=== PATIENT | male | born 1970 | race Caucasian/White ===

== ENCOUNTER 2021-05-28 14:09 | Inpatient (IN) ==
[2021-05-28] MEDS ORDERED: SODIUM CHLORIDE 0.9% 500 ML IV STA (14:56)
--- NOTE | 2021-05-28 15:10 | Emergency Department Note ---
History of Present Illness General Chief complaint: Chest Pain Time Seen by Provider: 05/28/21 14:42 History of Present Illness 50-year-old male who presents to the emergency department with his for evaluation of chest pain. The patient describes it as a sharp sensation of the lower sternum region. It does not extend into the jaw, neck or extremities. The patient reports that he had just come plowing and shoveling snow. He was in his home when he developed the pain. The patient reported a brief episode of diaphoresis as well. The pain quickly went away within a few minutes. His [id number] was there, and was concerned that this could be his heart, and administered aspirin 325 mg. She also called 911, and the patient was transported to the emergency department for further evaluation. The patient refused IV access or nitroglycerin on route, denying any pain, and still currently denies any pain since arrival to the emergency department. The patient reports that he has had a prior history of stress echocardiogram performed by [email or web address] several years ago. The patient reports that he did have a weird heart rhythm, but was never put on any different medications other than his medications for hypertension and hyperlipidemia. The patient reports that he did not take his blood pressure medication this morning, and did take that after doing his outside activities. Blood pressure on route was 170/90. At the current time, the patient still denies any discomfort, nausea or diaphoresis. Home Medications Medication Instructions Recorded Confirmed Type atorvastatin 20 mg tablet 20 mg PO HS 05/28/21 05/28/21 History losartan 50 mg tablet 50 mg PO DAILY 05/28/21 05/28/21 History Allergies Allergy/AdvReac Type Severity Reaction Status Date / Time lisinopril AdvReac Unknown Cough Verified 05/28/21 15:26 Past Med/Surg History Medical History History of palpitations Hyperlipidemia Hypertension Surgical History No significant past surgical history Family History (Updated 05/28/21 @ 15:04 by Chirag Meade) Grandfather Myocardial infarction Social History Smoking Status: Never smoker Feels Safe at Home: Yes Review of Systems 10 system review was performed and was negative except for pertinent positives and negatives as indicated in history of present illness Physical Exam Vital Signs Vital Signs - 24 hr 05/28/21 14:30 05/28/21 14:31 05/28/21 15:00 Temperature 37.1 C Temperature Source Oral Pulse Rate 80 84 60 Pulse Rate from SpO2 Sensor 61 Respiratory Rate 22 16 20 Blood Pressure 180/92 H 191/98 H 203/98 H Blood Pressure Mean 121 129 133 Blood Pressure Position Sitting Pulse Oximetry 97 94 98 Oxygen Delivery Method Room Air Room Air Room Air Sepsis Recent Fever Within 48 Hours No Sepsis New/Unexplained Change in Mental Status No Sepsis Action Taken by Nursing No Action Required 05/28/21 15:29 05/28/21 15:30 05/28/21 16:00 Temperature Temperature Source Pulse Rate 56 L 60 75 Pulse Rate from SpO2 Sensor 57 L 59 L 69 Respiratory Rate 21 16 25 H Blood Pressure 175/100 H 171/106 H 161/84 H Blood Pressure Mean 125 127 109 Blood Pressure Position Pulse Oximetry 98 98 98 Oxygen Delivery Method Room Air Room Air Room Air Sepsis Recent Fever Within 48 Hours Sepsis New/Unexplained Change in Mental Status Sepsis Action Taken by Nursing 05/28/21 16:30 05/28/21 17:00 05/28/21 17:30 Temperature Temperature Source Pulse Rate 64 57 L 56 L Pulse Rate from SpO2 Sensor 59 L 57 L 55 L Respiratory Rate 26 H 22 23 Blood Pressure 176/82 H 168/78 H 170/95 H Blood Pressure Mean 113 108 120 Blood Pressure Position Pulse Oximetry 98 98 98 Oxygen Delivery Method Room Air Room Air Room Air Sepsis Recent Fever Within 48 Hours Sepsis New/Unexplained Change in Mental Status Sepsis Action Taken by Nursing 05/28/21 18:00 Temperature Temperature Source Pulse Rate 76 Pulse Rate from SpO2 Sensor 75 Respiratory Rate 21 Blood Pressure 200/106 H Blood Pressure Mean 137 Blood Pressure Position Pulse Oximetry 99 Oxygen Delivery Method Room Air Sepsis Recent Fever Within 48 Hours Sepsis New/Unexplained Change in Mental Status Sepsis Action Taken by Nursing CONSTITUTIONAL: Healthy and well nourished. Alert and oriented X 3. Patient does not appear in any acute distress, and is not diaphoretic. HEENT: Normocephalic, atraumatic. Pupils equal, round and reactive. NECK: Full active range of motion without discomfort. LYMPHATICS: No cervical chain adenopathy. RESPIRATORY: Clear to auscultation bilaterally with no wheezing, crackles, rhonchi or stridor. CARDIOVASCULAR: Regular rate and rhythm with no murmurs, rubs or gallops. GASTROINTESTINAL: Bowel sounds present in all quadrants. Soft and nontender to palpation. MUSCULOSKELETAL: Full range of motion of all joints without discomfort. Patient has no reproducible tenderness to palpation over the anterior chest wall or costochondral joints. INTEGUMENTARY: No rash or other significant dermatologic conditions noted. HEMATOLOGIC: No ecchymosis or petechiae. PSYCHIATRIC: Positive affect. NEUROLOGIC: No focal neurologic deficits noted. Course Course Patient history and physical exam were performed. Nurses notes were reviewed. Vital signs were reviewed, showing an elevated blood pressure 191/98. I also reviewed prior medical records, showing that I saw this patient back in April 2016 after experiencing left-sided chest pain while hunting. His work-up in the emergency department was normal. The patient reports that he did follow-up with [facility] cardiology at a later date after having palpitations. He did have an echocardiogram performed that was normal. IV access was established upon arrival to the emergency department, and labs were drawn. An ECG was performed and compared to his prior ECG in April 2016 without any significant changes. The patient did have a PVC on today's exam, however no obvious ST elevation or conduction abnormalities noted. The patient was also placed on insurance claim representative while in the emergency department. Portable chest x-ray was also performed and was normal. Review of labs showed a normal D -dimer, and troponin of 0.03. Patient is mildly hyponatremic at 135. LFTs are also elevated with no prior labs for comparison. A 2-hour troponin was performed, and slightly elevated at 0.04. A 2.5-hour ECG, however, showed ischemic changes in inferior and lateral leads. The patient was reevaluated, again denying any chest pain while in the emergency department. The case was then further discussed with Dr. Moran, ED attending physician, who recommends cardiology consultation. The case was further discussed with Dr. Bishop at the patient's request, who recommended admission with planned stress echo in the morning. The case was then further discussed with the [facility] hospitalist service, with Dr. Jade evaluated the patient for admission. I did discuss with Dr. Bishop administration of IV heparin, however he does not feel that the patient warrants heparinization since he does not have any current chest pain. Please see the hospitalist service and Dr. Bishop's dictation for further treatment and final disposition. Administered Medications Discontinued Medications Sodium Chloride (Nss) 500 mls @ 999 mls/hr IV .Q31M STA Stop: 05/28/21 15:26 Last Infusion: 05/28/21 16:10 Dose: 0 mls/hr Documented by: [id number] Admin: 05/28/21 15:30 Dose: 999 mls/hr Documented by: [id number] Labetalol HCl (Labetalol Hcl Iv 5 Mg/Ml 20ml) 5 mg IV NOW STA Stop: 05/28/21 18:56 Last Admin: 05/28/21 20:38 Dose: 5 mg Documented by: [id number] Cosigned by: [id number] Losartan Potassium (Losartan Potassium 50 Mg Tab) 50 mg PO NOW STA Stop: 05/28/21 19:20 Last Admin: 05/28/21 20:41 Dose: 50 mg Documented by: [id number] Medical Decision Making Medical Records Attestation: I reviewed the patient's medical records. Home Medications Current Medication List: was personally reviewed by me Laboratory Data Attestation: I reviewed the patient's lab results. Result diagrams: 05/28/21 14:43 05/28/21 14:43 Lab Results 05/28/21 05/28/21 05/28/21 Range/Units 14:43 14:43 14:43 WBC 6.37 (4.8-10.8) K/uL RBC 4.61 L (4.7-6.1) M/uL Hgb 15.7 (14.0-18.0) g/dL Hct 45.4 (42-52) % MCV 98.5 (80-100) fL MCH 34.1 H (25-34) pg MCHC 34.6 (32-36) g/dL RDW Std Deviation 46.6 H (36.4-46.3) fL RDW Coeff of Sai 12.9 (11.5-14.5) % Plt Count 245 (130-400) K/uL MPV 9.6 (7.4-10.4) fL Immature Gran % (Auto) 0.2 % Neut % (Auto) 76.3 % Lymph % (Auto) 14.9 % [place] % (Auto) 7.4 % Eos % (Auto) 0.9 % Baso % (Auto) 0.3 % Neut # (Auto) 4.86 (1.4-6.5) K/uL Lymph # (Auto) 0.95 L (1.2-3.4) K/uL [place] # (Auto) 0.47 (0.11-0.59) K/uL Eos # (Auto) 0.06 (0-0.5) K/uL Baso # (Auto) 0.02 (0-0.2) K/uL Immature Gran # (Auto) 0.01 (0.00-0.02) K/uL PT 10.1 (9.0-12.0) Seconds INR 1.0 (0.9-1.1) APTT 24.4 (21.0-31.0) Seconds PTT Ratio 0.9 D-Dimer 360 (0-500) ug/L FEU Sodium 135 L (136-145) mmol/L Potassium 3.8 (3.5-5.1) mmol/L Chloride 103 (98-107) mmol/L Carbon Dioxide 24 (21-32) mmol/L Anion Gap 8 (3-11) BUN 13 (6-23) mg/dl Creatinine 0.88 (0.6-1.4) mg/dl Est Cr Clr Drug Dosing 124.8 ml/min Est GFR ( Amer) 116.9 ml/min Est GFR (Non-Af Amer) 100.9 ml/min BUN/Creatinine Ratio 14.8 (10-20) Glucose 82 (70-99(Fasting)) mg/dl Calcium 9.3 (8.5-10.1) mg/dl Magnesium (1.7-2.4) mg/dl Total Bilirubin 0.6 (0.2-1.0) mg/dl AST 85 H (13-39) U/L ALT 89 H (7-52) U/L Alkaline Phosphatase 59 (34-104) U/L Troponin I 0.03 (0-0.04) ng/ml Total Protein 7.3 (6.0-8.3) gm/dl Albumin 4.5 (3.4-5.0) gm/dl Globulin 2.8 (2.5-4.0) gm/dl Albumin/Globulin Ratio 1.6 (0.9-2) Lipase 63 (11-82) U/L Ethyl Alcohol mg/dL (<10.0) mg/dl SARS-CoV-2, RNA, NAAT (NEGATIVE) 05/28/21 05/28/21 05/28/21 Range/Units 16:37 18:38 19:37 WBC (4.8-10.8) K/uL RBC (4.7-6.1) M/uL Hgb (14.0-18.0) g/dL Hct (42-52) % MCV (80-100) fL MCH (25-34) pg MCHC (32-36) g/dL RDW Std Deviation (36.4-46.3) fL RDW Coeff of Sai (11.5-14.5) % Plt Count (130-400) K/uL MPV (7.4-10.4) fL Immature Gran % (Auto) % Neut % (Auto) % Lymph % (Auto) % [place] % (Auto) % Eos % (Auto) % Baso % (Auto) % Neut # (Auto) (1.4-6.5) K/uL Lymph # (Auto) (1.2-3.4) K/uL [place] # (Auto) (0.11-0.59) K/uL Eos # (Auto) (0-0.5) K/uL Baso # (Auto) (0-0.2) K/uL Immature Gran # (Auto) (0.00-0.02) K/uL PT (9.0-12.0) Seconds INR (0.9-1.1) APTT (21.0-31.0) Seconds PTT Ratio D-Dimer (0-500) ug/L FEU Sodium (136-145) mmol/L Potassium (3.5-5.1) mmol/L Chloride (98-107) mmol/L Carbon Dioxide (21-32) mmol/L Anion Gap (3-11) BUN (6-23) mg/dl Creatinine (0.6-1.4) mg/dl Est Cr Clr Drug Dosing ml/min Est GFR ( Amer) ml/min Est GFR (Non-Af Amer) ml/min BUN/Creatinine Ratio (10-20) Glucose (70-99(Fasting)) mg/dl Calcium (8.5-10.1) mg/dl Magnesium 1.8 (1.7-2.4) mg/dl Total Bilirubin (0.2-1.0) mg/dl AST (13-39) U/L ALT (7-52) U/L Alkaline Phosphatase (34-104) U/L Troponin I 0.04 0.04 (0-0.04) ng/ml Total Protein (6.0-8.3) gm/dl Albumin (3.4-5.0) gm/dl Globulin (2.5-4.0) gm/dl Albumin/Globulin Ratio (0.9-2) Lipase (11-82) U/L Ethyl Alcohol mg/dL (<10.0) mg/dl SARS-CoV-2, RNA, NAAT NEGATIVE (NEGATIVE) 05/28/21 Range/Units 19:37 WBC (4.8-10.8) K/uL RBC (4.7-6.1) M/uL Hgb (14.0-18.0) g/dL Hct (42-52) % MCV (80-100) fL MCH (25-34) pg MCHC (32-36) g/dL RDW Std Deviation (36.4-46.3) fL RDW Coeff of Sai (11.5-14.5) % Plt Count (130-400) K/uL MPV (7.4-10.4) fL Immature Gran % (Auto) % Neut % (Auto) % Lymph % (Auto) % [place] % (Auto) % Eos % (Auto) % Baso % (Auto) % Neut # (Auto) (1.4-6.5) K/uL Lymph # (Auto) (1.2-3.4) K/uL [place] # (Auto) (0.11-0.59) K/uL Eos # (Auto) (0-0.5) K/uL Baso # (Auto) (0-0.2) K/uL Immature Gran # (Auto) (0.00-0.02) K/uL PT (9.0-12.0) Seconds INR (0.9-1.1) APTT (21.0-31.0) Seconds PTT Ratio D-Dimer (0-500) ug/L FEU Sodium (136-145) mmol/L Potassium (3.5-5.1) mmol/L Chloride (98-107) mmol/L Carbon Dioxide (21-32) mmol/L Anion Gap (3-11) BUN (6-23) mg/dl Creatinine (0.6-1.4) mg/dl Est Cr Clr Drug Dosing ml/min Est GFR ( Amer) ml/min Est GFR (Non-Af Amer) ml/min BUN/Creatinine Ratio (10-20) Glucose (70-99(Fasting)) mg/dl Calcium (8.5-10.1) mg/dl Magnesium (1.7-2.4) mg/dl Total Bilirubin (0.2-1.0) mg/dl AST (13-39) U/L ALT (7-52) U/L Alkaline Phosphatase (34-104) U/L Troponin I (0-0.04) ng/ml Total Protein (6.0-8.3) gm/dl Albumin (3.4-5.0) gm/dl Globulin (2.5-4.0) gm/dl Albumin/Globulin Ratio (0.9-2) Lipase (11-82) U/L Ethyl Alcohol mg/dL < 10.0 (<10.0) mg/dl SARS-CoV-2, RNA, NAAT (NEGATIVE) Imaging Data Attestation: I personally reviewed and interpreted this imaging study as follows: My Impression: My interpretation of a portable chest x-ray does not show any consolidations, pneumothorax or cardiac prominence. Radiologist report was also reviewed. Radiologist's Impression: Chest X-Ray 05/28/21 14:56 XR chest 1V portable CLINICAL HISTORY: Chest Pain. COMPARISON STUDY: 04/16/2016 TECHNIQUE: 1 view of the chest FINDINGS: Single frontal view of the chest demonstrates the cardiomediastinal silhouette to be within normal limits. The lungs are clear of alveolar opacities. There is no evidence for pleural effusion. There is no evidence for vascular congestion. There is no acute osseous pathology. IMPRESSION: No acute cardiopulmonary disease. ACT 112: Negative or not required by law. Electronically signed by: Jozef Carr M.D. 05/28/2021 3:21 PM ECG Data Attestation: I personally reviewed and interpreted this ECG as follows: Indication: + chest pain and + diaphoresis Rate (beats per minute): 66 Rhythm: + sinus with SA ECG Intervals/blocks: + Normal QRS and + Normal QT ECG [place]: + Normal ECG ST segments: + Normal ST segments ECG Findings: + PVCs Comparison ECG Date: from (04/16/2016) Change: no significant change Additional Comments: Repeat ECG at 2.5 hours shows ischemic changes in inferior leads, and lateral leads V5 and V6. Blood Pressure Blood Pressure Findings: Normal blood pressure MDM Narrative Cardiac monitoring: An order was placed for continuous cardiac monitoring. The monitor shows a rate of 66 bpm with sinus arrhythmia. travel accommodations rater history was reviewed throughout the evaluation, and no dysrhythmias were noted. Patient presents to the emergency department with complaint of chest pain and diaphoresis after working in snow this morning. With rest, the symptoms did resolve. Patient was administered aspirin at home, and transported to the emergency department for further evaluation, refusing any nitroglycerin or IV access on route. Today's work-up here is concerning for inferior and lateral ischemic changes, with a mild increase in his troponin level. At this point, cardiology feels that the patient does not require heparinization, and will undergo a stress echo in the morning. Further ECG and troponin trending will be performed overnight. Impression & Plan Unstable angina Discharge Plan Visit Data Chief Complaint: Chest Pain ED Provider: Araseli Moran ED Midlevel Provider: Chirag Meade Discharge Problem: Unstable angina Forms Stand Alone Forms: My [employer] Prescriptions Prescriptions: No Action losartan 50 mg tablet 50 mg PO DAILY RF: 0 atorvastatin 20 mg tablet 20 mg PO HS RF: 0 Referrals Referrals: Christopher Mejia MD [Primary Care Provider] -
--- NOTE | 2021-05-28 15:22 | XRay Report ---
XR chest 1V portable CLINICAL HISTORY: Chest Pain. COMPARISON STUDY: 04/16/2016 TECHNIQUE: 1 view of the chest FINDINGS: Single frontal view of the chest demonstrates the cardiomediastinal silhouette to be within normal li mits. The lungs are clear of alveolar opacities. There is no evidence for pleural effusion. There is no evidence for vascular congestion. There is no acute osseous pathology. IMPRESSION: No acute cardiopulmonary disease. ACT 112: Negative or not required by law. Electronically signed by: Jozef Carr M.D. 05/28/2021 3:21 PM
[2021-05-28 15:28] LABS: Basophils # (auto) 0.02 K/uL (0-0.2); Basophils % (auto) 0.3 %; Eosinophils # (auto) 0.06 K/uL (0-0.5); Eosinophils % (auto) 0.9 %; Hematocrit (blood only) 45.4 % (42-52); Hemoglobin 15.7 g/dL (14.0-18.0); Immature Granulocytes # (auto) 0.01 K/uL (0.00-0.02); Immature Granulocytes % (auto) 0.2 %; Lymphocytes # (auto) 0.95 K/uL (1.2-3.4); Lymphocytes % (auto) 14.9 %; Mean Corpuscular Hemoglobin 34.1 pg (25-34); Mean Corpuscular Hgb Conc 34.6 g/dL (32-36); Mean Corpuscular Volume 98.5 fL (80-100); Mean Platelet Volume 9.6 fL (7.4-10.4); Monocytes # (auto) 0.47 K/uL (0.11-0.59); Monocytes % (auto) 7.4 %; Neutrophils # (auto) 4.86 K/uL (1.4-6.5); Neutrophils % (auto) 76.3 %; Platelet Count 245 K/uL (130-400); RDW Coefficient of Variation 12.9 % (11.5-14.5); RDW Standard Deviation 46.6 fL (36.4-46.3); Red Blood Count 4.61 M/uL (4.7-6.1); White Blood Count 6.37 K/uL (4.8-10.8)
[2021-05-28 15:39] LABS: D Dimer 360 ug/L FEU (0-500); Partial Thromboplastin Ratio 0.9; Partial Thromboplastin Time 24.4 Seconds (21.0-31.0); Prothrombin Time 10.1 Seconds (9.0-12.0)
[2021-05-28 15:51] LABS: Troponin I 0.03 ng/ml (0-0.04)
[2021-05-28 15:55] LABS: Albumin Globulin Ratio 1.6 (0.9-2); Albumin Level 4.5 gm/dl (3.4-5.0); BUN Creatinine Ratio 14.8 (10-20); Bilirubin,Total 0.6 mg/dl (0.2-1.0); Calcium 9.3 mg/dl (8.5-10.1); Creatinine Clr Calc Pharmacy 124.8 ml/min; Est GFR (African American) 116.9 ml/min; Est GFR (Non-African American) 100.9 ml/min; Globulin 2.8 gm/dl (2.5-4.0); Total Protein 7.3 gm/dl (6.0-8.3)
[2021-05-28 16:24] LABS: Potassium 3.8 mmol/L (3.5-5.1)
--- NOTE | 2021-05-28 16:49 | Electrocardiogram Report ---
Test Reason : Blood Pressure : / mmHG Vent. Rate : 066 BPM Atrial Rate : 066 BPM P-R Int : 182 ms QRS Dur : 108 ms QT Int : 404 ms P-R-T Axes : 044 -20 -32 degrees QTc Int : 423 ms Sinus rhythm with marked sinus arrhythmia with Fusion complexes Abnormal ECG When compared with ECG of 16-APR-2016 11:02, Fusion complexes are now Present Confirmed by Robin Sharif ([id number]) on 05/28/2021 4:49:03 PM Referred By: REFERRED SELF Confirmed By:Robin Sharif
[2021-05-28] MEDS ORDERED: LABETALOL HCL IV 5 MG/ML 20ML IV STA (18:55)
[2021-05-28] MEDS ORDERED: LOSARTAN POTASSIUM 50 MG TAB PO STA (19:19)
[2021-05-28 20:10] LABS: Magnesium 1.8 mg/dl (1.7-2.4); Troponin I 0.04 ng/ml (0-0.04)
--- NOTE | 2021-05-28 21:10 | History & Physical Report ---
Date of Service May 28, 2021 Assessment & Plan (1) Chest pain: Plan: Chest pain with minimal troponin elevation secondary to uncontrolled hypertension Rule out ACS given patient risk factors Rule out sleep disordered breathing as contributory to uncontrolled hypertension Hyperlipidemia on statin Rx Abnormal LFTs, possibly from alcohol abuse OBS PCU Titrate home losartan Add amlodipine if still uncontrolled Follow troponin TTE, Cardiology consult Re: Chest pain with troponin elevation (Patient requesting for Dr. Bishop.) N.p.o. until patient seen by Cardiology in a.m. in anticipation of any procedure. Aspirin for CAD prevention until ACS ruled out Outpatient sleep study Follow LFTs, liver ultrasound if with progression [place] S, DT precautions Update lipid profile, continue statin DVT prophylaxis per Lovenox subcu Full code Text document was generated using [employer] voice recognition software. It may contain grammatical or spelling errors. Kindly contact undersigned for clarification of any documentation item in question. History of Present Illness Chief Complaint: Chest pain Primary Care Provider: Christopher Mejia MD History obtained from patient and records. Medical history significant for hypertension, hyperlipidemia, alcohol abuse. Patient experience sharp left-sided chest pain with diaphoreses after shoveling snow at home today. No radiation. Some shortness of breath. No headache symptoms. No cough symptoms. No prior episodes. Patient given aspirin at home by family. Chest pain relieved by aspirin. No prior episodes. Patient does not check blood pressure at home. Compliant with home medications. Patient admits to drinking more alcohol than he should. No prior history of alcohol withdrawal. Admits to snoring symptoms. No prior sleep studies. 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 Allergies Allergy/AdvReac Type Severity Reaction Status Date / Time lisinopril AdvReac Unknown Cough Verified 05/28/21 15:26 Home Medications Medication Instructions Recorded Confirmed Type atorvastatin 20 mg tablet 20 mg PO HS 05/28/21 05/28/21 History losartan 50 mg tablet 50 mg PO DAILY 05/28/21 05/28/21 History Past Med/Surg History Medical History (Updated 05/29/21 @ 12:52 by Chapin Powell MD) Alcohol abuse Fatty liver History of palpitations Hyperlipidemia Hypertension Surgical History No significant past surgical history Family History (Updated 05/28/21 @ 15:04 by Chirag Meade) Grandfather Myocardial infarction Social History Smoking Status: Former smoker Do You Dip or Chew Tobacco: Yes; Hx Alcohol Use: Yes Alcohol type: beer and hard liquor Preferred Language: Tamaz[place] Communication Ability: Effective Volunteer Services Supervisor Required: No Beliefs That Will Affect Care: None Current Living Situation: Alone Other Information That Helps Us Care for You: No Feels Safe at Home: Yes Safety Concerns: Feels Safe At This Time Assistive Devices: None Assistive Devices Comment: Reading Glasses Review of Systems Review of Systems: As per HPI, all 10 systems reviewed, all other ROS negative Physical Exam Physical Exam: GENERAL: Comfortable, pleasant, slightly anxious, no respiratory distress SKIN: Normal color, warm HEENT: [place] palpebral conjunctivae, no ptosis, dry buccal mucosa NECK : Supple, no tenderness CHEST : CTA, no tenderness HEART : RRR, no obvious murmurs ABDOMEN: Some distention, nontender EXTREMITIES : No LE swelling/tenderness, no other conspicuous deformities noted NEUROLOGIC : Coherent, no facial asymmetry, no other gross focality Results & Data Results & Data ([facility]) Vital Signs (Past 12 Hours) Vital Signs Temp Pulse Resp BP Pulse Ox 05/28/21 18:00 76 21 200/106 H 99 05/28/21 17:30 56 L 23 170/95 H 98 05/28/21 17:00 57 L 22 168/78 H 98 05/28/21 16:30 64 26 H 176/82 H 98 05/28/21 16:00 75 25 H 161/84 H 98 05/28/21 15:30 60 16 171/106 H 98 05/28/21 15:29 56 L 21 175/100 H 98 05/28/21 15:00 60 20 203/98 H 98 05/28/21 14:31 37.1 C 84 16 191/98 H 94 05/28/21 14:30 80 22 180/92 H 97 Laboratory Results Laboratory Results WBC 6.37 K/uL (4.8-10.8) 05/28/21 14:43 RBC 4.61 M/uL (4.7-6.1) L 05/28/21 14:43 Hgb 15.7 g/dL (14.0-18.0) 05/28/21 14:43 Hct 45.4 % (42-52) 05/28/21 14:43 MCV 98.5 fL (80-100) 05/28/21 14:43 MCH 34.1 pg (25-34) H 05/28/21 14:43 MCHC 34.6 g/dL (32-36) 05/28/21 14:43 RDW Std Deviation 46.6 fL (36.4-46.3) H 05/28/21 14:43 RDW Coeff of Sai 12.9 % (11.5-14.5) 05/28/21 14:43 Plt Count 245 K/uL (130-400) 05/28/21 14:43 MPV 9.6 fL (7.4-10.4) 05/28/21 14:43 Immature Gran % (Auto) 0.2 % 05/28/21 14:43 Neut % (Auto) 76.3 % 05/28/21 14:43 Lymph % (Auto) 14.9 % 05/28/21 14:43 [place] % (Auto) 7.4 % 05/28/21 14:43 Eos % (Auto) 0.9 % 05/28/21 14:43 Baso % (Auto) 0.3 % 05/28/21 14:43 Neut # (Auto) 4.86 K/uL (1.4-6.5) 05/28/21 14:43 Lymph # (Auto) 0.95 K/uL (1.2-3.4) L 05/28/21 14:43 [place] # (Auto) 0.47 K/uL (0.11-0.59) 05/28/21 14:43 Eos # (Auto) 0.06 K/uL (0-0.5) 05/28/21 14:43 Baso # (Auto) 0.02 K/uL (0-0.2) 05/28/21 14:43 Immature Gran # (Auto) 0.01 K/uL (0.00-0.02) 05/28/21 14:43 PT 10.1 Seconds (9.0-12.0) 05/28/21 14:43 INR 1.0 (0.9-1.1) 05/28/21 14:43 APTT 24.4 Seconds (21.0-31.0) 05/28/21 14:43 PTT Ratio 0.9 05/28/21 14:43 D-Dimer 360 ug/L FEU (0-500) 05/28/21 14:43 Sodium 135 mmol/L (136-145) L 05/28/21 14:43 Potassium 3.8 mmol/L (3.5-5.1) 05/28/21 14:43 Chloride 103 mmol/L (98-107) 05/28/21 14:43 Carbon Dioxide 24 mmol/L (21-32) 05/28/21 14:43 Anion Gap 8 (3-11) 05/28/21 14:43 BUN 13 mg/dl (6-23) 05/28/21 14:43 Creatinine 0.88 mg/dl (0.6-1.4) 05/28/21 14:43 Est Cr Clr Drug Dosing 124.8 ml/min 05/28/21 14:43 Est GFR ( Amer) 116.9 ml/min 05/28/21 14:43 Est GFR (Non-Af Amer) 100.9 ml/min 05/28/21 14:43 BUN/Creatinine Ratio 14.8 (10-20) 05/28/21 14:43 Glucose 82 mg/dl (70-99(Fasting)) 05/28/21 14:43 Calcium 9.3 mg/dl (8.5-10.1) 05/28/21 14:43 Magnesium 1.8 mg/dl (1.7-2.4) 05/28/21 19:37 Total Bilirubin 0.6 mg/dl (0.2-1.0) 05/28/21 14:43 AST 85 U/L (13-39) H 05/28/21 14:43 ALT 89 U/L (7-52) H 05/28/21 14:43 Alkaline Phosphatase 59 U/L (34-104) 05/28/21 14:43 Troponin I 0.04 ng/ml (0-0.04) 05/28/21 19:37 Total Protein 7.3 gm/dl (6.0-8.3) 05/28/21 14:43 Albumin 4.5 gm/dl (3.4-5.0) 05/28/21 14:43 Globulin 2.8 gm/dl (2.5-4.0) 05/28/21 14:43 Albumin/Globulin Ratio 1.6 (0.9-2) 05/28/21 14:43 Lipase 63 U/L (11-82) 05/28/21 14:43 Ethyl Alcohol mg/dL < 10.0 mg/dl (<10.0) 05/28/21 19:37 SARS-CoV-2, RNA, NAAT NEGATIVE (NEGATIVE) 05/28/21 18:38 Impressions Chest X-Ray 05/28/21 14:56 XR chest 1V portable CLINICAL HISTORY: Chest Pain. COMPARISON STUDY: 04/16/2016 TECHNIQUE: 1 view of the chest FINDINGS: Single frontal view of the chest demonstrates the cardiomediastinal silhouette to be within normal limits. The lungs are clear of alveolar opacities. There is no evidence for pleural effusion. There is no evidence for vascular congestion. There is no acute osseous pathology. IMPRESSION: No acute cardiopulmonary disease. ACT 112: Negative or not required by law. Electronically signed by: Jozef Carr M.D. 05/28/2021 3:21 PM Diagnostic Findings EKG as per my interpretation: Rate 65, NSR, LAD, LAFB, T wave abnormalities inferior leads
[2021-05-28] MEDS ORDERED: THIAMINE HCL 100 MG in SYRINGE 9 ML IV STA (21:18)
[2021-05-28] MEDS ORDERED: GABAPENTIN 1200MG ALCOHOL WITHDRAWAL LOAD PO STA (21:18)
[2021-05-28] MEDS ORDERED: GABAPENTIN 600 MG TAB PO STA (23:00)
[2021-05-28] MEDS ORDERED: LORazepam 1 MG/2 ML VIAL IV PRN (23:37)
[2021-05-28] MEDS ORDERED: LORazepam 3 MG/6 ML VIAL IV PRN (23:37)
[2021-05-28] MEDS ORDERED: ATIVAN IV ALCOHOL WITHDRAWL IV PRN (23:37)
[2021-05-28] MEDS ORDERED: oxyCODONE HCL IR 5 MG TAB (IMMEDIATE RELEASE) PO PRN (23:37)
[2021-05-28] MEDS ORDERED: LORazepam 2 MG/4 ML VIAL IV PRN (23:37)
[2021-05-28] MEDS ORDERED: NITROGLYCERIN SL 0.4 MG/TAB TAB SL PRN (23:37)
[2021-05-28] MEDS ORDERED: PROMETHAZINE HCL 12.5 MG in SODIUM CHLORIDE 0.9% 50 ML IV PRN (23:37)
[2021-05-29] MEDS ORDERED: SODIUM CHLORIDE 0.9% 1000ML 1,000 ML IV SCH
[2021-05-29] MEDS ORDERED: amLODIPine BESYLATE 5 MG TAB PO ONE ×2 (00:30→13:00)
[2021-05-29 05:57] LABS: Basophils # (auto) 0.02 K/uL (0-0.2); Basophils % (auto) 0.4 %; Eosinophils # (auto) 0.15 K/uL (0-0.5); Eosinophils % (auto) 2.8 %; Hematocrit (blood only) 42.8 % (42-52); Hemoglobin 14.9 g/dL (14.0-18.0); Lymphocytes # (auto) 1.76 K/uL (1.2-3.4); Mean Corpuscular Hemoglobin 33.8 pg (25-34); Mean Corpuscular Hgb Conc 34.8 g/dL (32-36); Mean Corpuscular Volume 97.1 fL (80-100); Mean Platelet Volume 9.3 fL (7.4-10.4); Monocytes # (auto) 0.63 K/uL (0.11-0.59); Monocytes % (auto) 11.8 %; Neutrophils # (auto) 2.78 K/uL (1.4-6.5); Platelet Count 214 K/uL (130-400); RDW Coefficient of Variation 12.7 % (11.5-14.5); RDW Standard Deviation 45.4 fL (36.4-46.3); Red Blood Count 4.41 M/uL (4.7-6.1); White Blood Count 5.34 K/uL (4.8-10.8)
[2021-05-29] MEDS: GABAPENTIN 600MG Q6H DOSE PO SCH ×2 (06:06→12:41)
[2021-05-29 06:19] LABS: Partial Thromboplastin Time 25.1 Seconds (21.0-31.0)
[2021-05-29 06:21] LABS: Troponin I 0.04 ng/ml (0-0.04)
[2021-05-29 06:32] LABS: Albumin Globulin Ratio 1.7 (0.9-2); BUN Creatinine Ratio 13.8 (10-20); Bilirubin,Total 0.8 mg/dl (0.2-1.0); Calcium 8.6 mg/dl (8.5-10.1); Chol HDL Ratio 3.5; Creatinine Clr Calc Pharmacy 136.4 ml/min; Est GFR (African American) 121.6 ml/min; Est GFR (Non-African American) 104.9 ml/min; Globulin 2.3 gm/dl (2.5-4.0); Potassium 3.4 mmol/L (3.5-5.1); Total Protein 6.3 gm/dl (6.0-8.3)
[2021-05-29] MEDS ORDERED: POTASSIUM CHLORIDE CRTAB 20 MEQ TABCR PO STA (08:02)
[2021-05-29] MEDS: LOSARTAN POTASSIUM 50 MG TAB PO SCH (08:03)
[2021-05-29] MEDS: MULTIVITAMIN TAB PO SCH (08:05)
[2021-05-29] MEDS: THIAMINE HCL 100 MG TAB PO SCH (08:05)
[2021-05-29] MEDS: ASPIRIN 81 MG ECTAB PO SCH (08:06)
[2021-05-29] MEDS: FOLIC ACID 1 MG TAB PO SCH (08:06)
[2021-05-29] MEDS ORDERED: hydrALAZINE HCL 20 MG/ML VIAL IV ONE (08:14)
[2021-05-29] MEDS ORDERED: hydrALAZINE HCL 20 MG/ML VIAL ONE (08:15)
--- NOTE | 2021-05-29 08:26 | Hospitalist Progress Note ---
Date of Service May 29, 2021 Assessment & Plan (1) Chest pain: Plan: Likely related to elevated blood pressure, however, risk factors present for CAD. Cardiology consult requested. Denies pain currently. Trop trend is negative x 3 overnight. EKG with some TWI in V5/6 this am different from yesterday. Patient mentions issues with anxiety related to doctor's offices and hospitals in the past. Will attempt to get BP better under control at this time. Likely stress test today if BP can be more controlled. Defer this to cardiology. (2) Hypertensive urgency: Plan: Uncontrolled overnight. Possibly related to alcohol withdrawal, however, patient is not symptomatic at this time. Add hydralazine 5mg IV now. Losartan 100mg given this am per home meds. Recheck in one hour. (3) Hyperlipidemia: Plan: Elevated LDL. Would increase lipitor 20mg to 40mg daily on discharge. (4) Elevated transaminase level: Plan: Possibly related to statin use and prior notes mention alcohol use. RUQ ultrasound ordered. Trending down. (5) DVT prophylaxis: Plan: Lovenox Full Code Dispo-to home pending cardiology recommendations, improvement in blood pressure. Cadence Cox DO [facility] Hospitalist Admission and Anticipated Discharge Date Admission Date: May 28, 2021 Subjective 50 yo M with hyperlipidemia and HTN presents with acute chest pain after shoveling snow yesterday. He is active and denies chest pain or progressive SOB with exertion in the last 6 months. Reports the pain was in his left anterior chest and was associated with diaphoresis. Reports that his blood pressure is typically within range and that he is compliant with his medications. Chest pain was coming and going, nothing seemed to make it better. He remembers it still being there in the ambulance but hasn't had any overnight. BP has remained elevated overnight. Review of Systems Review of Systems: All systems were reviewed and negative except as indicated above. Physical Exam Physical Exam: CONSTITUTIONAL: WNWD, vitals as above, generally well- appearing, NAD EYES: normal conjunctivae, no scleral icterus, ENT: external ear and nose normal, MMM NECK: trachea midline, RESPIRATORY: clear to auscultation bilaterally, no crackles, rales or wheezes, normal respiratory effort CARDIOVASCULAR: regular rate and rhythm, S1 and 2 heard without murmurs, gallops or rubs, no JVD, no peripheral edema, CHEST: inspection of chest was normal GASTROINTESTINAL: soft, ND MUSCULOSKELETAL: strength 5/5 throughout, head is normocephalic and atraumatic SKIN: warm and dry NEUROLOGIC: CN 2-12 grossly intact, no sensory deficit, normal cognition, normal speech, no tremor. No gross focal deficits. PSYCHIATRIC: alert cooperative and oriented to person, place and time. Results & Data Results & Data ([facility]) Vital Signs (Past 12 Hours) Vital Signs Temp Pulse Pulse Resp BP BP Pulse Ox 05/29/21 07:21 36.6 C 54 L 18 184/94 H 97 05/29/21 03:49 36.6 C 66 16 176/95 H 95 05/29/21 01:02 64 201/101 H 05/28/21 23:51 36.7 C 67 20 199/98 H 98 05/28/21 23:17 103 H 18 194/102 H 98 Laboratory Results Short CBC 05/28/21 05/29/21 Range/Units 14:43 05:39 WBC 6.37 5.34 (4.8-10.8) K/uL Hgb 15.7 14.9 (14.0-18.0) g/dL Hct 45.4 42.8 (42-52) % Plt Count 245 214 (130-400) K/uL BMP 05/28/21 05/29/21 14:43 05:39 Sodium 135 L 138 Potassium 3.8 3.4 L Chloride 103 106 Carbon Dioxide 24 24 BUN 13 11 Creatinine 0.88 0.80 Glucose 82 84 Calcium 9.3 8.6 Cardiac Enzymes 05/28/21 05/28/21 05/28/21 Range/Units 14:43 16:37 19:37 Troponin I 0.03 0.04 0.04 (0-0.04) ng/ml 05/29/21 Range/Units 05:39 Troponin I 0.04 (0-0.04) ng/ml Liver Function 05/28/21 05/29/21 Range/Units 14:43 05:39 Total Bilirubin 0.6 0.8 (0.2-1.0) mg/dl AST 85 H 46 H (13-39) U/L ALT 89 H 67 H (7-52) U/L Alkaline Phosphatase 59 49 (34-104) U/L Albumin 4.5 4.0 (3.4-5.0) gm/dl Medications Administered Current Inpatient Medications Amlodipine Besylate (Amlodipine Besylate 5 Mg Tab) 2.5 mg PO [facility] Stop: 06/28/21 20:59 Aspirin (Aspirin 81 Mg Ectab) [facility]: 06/28/21 08:59 Last Admin: 05/29/21 08:06 Dose: 81 mg Documented by: Atorvastatin Calcium (Atorvastatin 20 Mg Tab) 20 mg PO [facility] Stop: 06/28/21 20:59 Enoxaparin Sodium (Enoxaparin Inj 40 Mg/0.4 Ml Syr) 40 mg SQ [facility] Stop: 06/28/21 08:59 Folic Acid (Folic Acid 1 Mg Tab) 1 mg PO [facility] Stop: 06/28/21 08:59 Last Admin: 05/29/21 08:06 Dose: 1 mg Documented by: Gabapentin (Gabapentin 600mg Q6h Dose) 600 mg PO Q6H [facility] Stop: 05/29/21 12:01 Last Admin: 05/29/21 06:06 Dose: 600 mg Documented by: Gabapentin (Gabapentin 600mg Q8h Dose) 600 mg PO Q8H [facility] Stop: 05/30/21 14:01 Gabapentin (Gabapentin 600mg Q12h Dose) 600 mg PO Q12H [facility] Stop: 05/31/21 12:01 Gabapentin (Gabapentin 600mg X1 Dose) 600 mg PO Q24H [facility] Stop: 06/01/21 12:01 Lorazepam (Ativan) 1 mg in 2 mls @ 2 mls/min IV UD PRN; Protocol PRN Reason: EtOH Withdrawl AWSS Score 6,7 Stop: 06/27/21 23:36 Lorazepam (Ativan) 2 mg in 4 mls @ 4 mls/min IV UD PRN; Protocol PRN Reason: EtOH Withdrawl AWSS Score 8,9 Stop: 06/27/21 23:36 Lorazepam (Ativan) 3 mg in 6 mls @ 4 mls/min IV ONCE PRN; Protocol PRN Reason: EtOH Withdrawl AWSS Score >=10 Stop: 06/27/21 23:36 Promethazine HCl 12.5 mg/ (Sodium Chloride) 50.5 mls @ 202 mls/hr IV Q6H PRN PRN Reason: Nausea And Vomiting Stop: 06/27/21 23:36 Losartan Potassium (Losartan Potassium 50 Mg Tab) 100 mg PO DAILY [facility] Stop: 06/28/21 08:59 Last Admin: 05/29/21 08:03 Dose: 100 mg Documented by: Multivitamins (Multivitamin Tab) [facility] [place]: 06/28/21 08:59 Last Admin: 05/29/21 08:05 Dose: 1 tab Documented by: Nitroglycerin (Nitroglycerin Sl 0.4 Mg/Tab Tab) 0.4 mg SL PRN PRN PRN Reason: cp Stop: 06/27/21 23:36 Oxycodone HCl (Oxycodone Hcl Ir 5 Mg Tab (Immediate Release)) 5 mg PO Q4H PRN PRN Reason: Pain Stop: 06/11/21 23:36 Thiamine HCl (Thiamine Hcl 100 Mg Tab) [facility]: 06/28/21 08:59 Last Admin: 05/29/21 08:05 Dose: 100 mg Documented by:
--- NOTE | 2021-05-29 09:26 | XCELERA ---
[id number]
--- NOTE | 2021-05-29 10:17 | Ultrasound Report ---
US liver LIMITED ABDOMEN CLINICAL HISTORY: elevated LFT. COMPARISON: None. TECHNIQUE: Multiple grayscale and color images of the right upper quadrant of the abdomen. FINDINGS: The study is limited by overlying bowel gas. Pancreas: The pancreas is not well visualized due to the overlying bowel gas. Liver: The liver demonstrates diffuse increased heterogeneous echogenicity characteristic of diffuse fatty infiltration. There is no evidence for a focal mass. There is no intrahepatic biliary duct dila tation. There is mild hepatomegaly with the liver measuring 19 cm in the axillary margin. Gallbladder: The gallbladder is well distended with no evidence of cholelithiasis, wall thickening o r pericholecystic edema. Common Bile Duct: (CBD): It is normal in size measuring 6 mm. Inferior Vena Cava (IVC): The imaged IVC is patent. Right kidney: There is no evidence for hydronephrosis, calculus or gross renal mass. The kidney is n ormal in size. IMPRESSION: Mild hepatomegaly with diffuse fatty infiltration of the liver. ACT 112: Negative or not required by law. Electronically signed by: Jozef Carr M.D. 05/29/2021 10:15 AM
[2021-05-29] MEDS ORDERED: LORazepam 1 MG/2 ML VIAL IV STA (12:16)
--- NOTE | 2021-05-29 12:37 | Cardiology Consultation ---
Date of Consultation May 29, 2021 Assessment & Plan (1) Chest pain: (2) Hypertensive urgency: (3) Hypertension: (4) Hyperlipidemia: (5) Alcohol abuse: (6) Fatty liver: ASSESSMENT/PLAN: 1. Chest pain: Occurred after exertion. Troponin negative. Given risk factors, recommend ischemic evaluation. He initially brought up cardiac catheterization stating that he does not wish to undergo and less necessary. Avoiding exercise stress at this time given severe hypertension. Myocardial perfusion study ordered but he has consumed caffeine within the past 24 hours so therefore it is scheduled for tomorrow. Chest pain could be due to underlying ischemic heart disease, severe hypertension, or other etiology. 2. Hypertensive urgency: Blood pressure not controlled. Increase amlodipine to 5 mg daily. Losartan was increased to 100 mg daily by primary hospitalist service. Can use p.r.n. hydralazine. Currently asymptomatic. 3. Hypertension: Plan as above. 4. Dyslipidemia: Recommend increasing atorvastatin to 40 mg daily as mentioned by hospitalist service. 5. Alcohol abuse: Recommended that he refrain from alcohol consumption. Offered to touch base with care coordination to investigate available services but he has a plan on his own. 6. Fatty liver: As per primary service. Recommended that he avoid alcohol consumption. 7. Disposition: Cardiology will continue to follow. Plan of care communicated with Dr. Cox of the primary hospitalist service. Thank you for allowing me to participate in the care of your patient. Please call for any other questions or concerns. Sincerely, Vinay Powell M.D. History of Present Illness Reason for Consultation: Chest pain Requesting Physician: Renan Reyes Attending Physician: Cadence Cox, History of Present Illness Mr. Garrido is a pleasant 50-year-old gentleman with a history significant for hypertension, dyslipidemia, and alcohol abuse. He was admitted on 05/28/2021 with chest discomfort. Yesterday, after shoveling and planning snow, he went into his home and dev eloped chest discomfort. He described the pain as a left-sided burning sensation that had no radiation. There is no associated shortness of breath but he recalls being diaphoretic. Symptoms intermittently occurred for approximately 20 minutes. He states that chest pain had completely resolved by the time he got to the emergency department. He has not had any further chest discomfort while hospitalized. His troponin has remained normal. He was noted to be severely hypertensive on presentation and throughout his hospital stay. He admits that he did not take his prescribed losartan yesterday morning before struggling snow but did take it when he returned to his home afterwards. While here, amlodipine was initiated by primary hospitalist service and losartan was titrated to 100 mg daily. He admits that he does not follow with his PCP on a regular basis. He denies syncope, near-syncope, palpitations, edema, or bleeding such as melena, hematochezia, or hematuria. He has had dyspnea with exertion which has been chronic and stable. He admits that he does not participate in dedicated exercise. He has a history of palpitations and recalls undergoing a stress test to the [employer] 4 or 5 years ago but palpitations have since resolved. He admits to consuming a large amount of alcohol per day, stating that he drinks to get drunk on a daily basis to help with his sleeping. Review of systems: As above. Review of systems otherwise negative/unremarkable. Family history: Paternal grandfather from [place] at approximately 65 years of age. Social history: He denies smoking tobacco products. Consumes 3-4 beers in 3-4 vodka drinks daily and has done so chronically. He smokes marijuana occasionally. He is . Has a fiancee. Lives home alone. Two adult daughters. 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 He was unaccompanied. Allergies Allergy/AdvReac Type Severity Reaction Status Date / Time lisinopril AdvReac Unknown Cough Verified 05/28/21 15:26 Home Medications Medication Instructions Recorded Confirmed Type atorvastatin 20 mg tablet 20 mg PO HS 05/28/21 05/28/21 History losartan 50 mg tablet 50 mg PO DAILY 05/28/21 05/28/21 History Patient History Medical History (Updated 05/29/21 @ 12:52 by Chapin Powell MD) Alcohol abuse Fatty liver History of palpitations Hyperlipidemia Hypertension Surgical History No significant past surgical history Family History (Updated 05/28/21 @ 15:04 by Chirag Meade) Grandfather Myocardial infarction Social History Smoking Status: Former smoker Do You Dip or Chew Tobacco: Yes; Hx Alcohol Use: Yes Alcohol type: beer and hard liquor Preferred Language: Welsh Communication Ability: Effective Senior Online Marketing Manager Required: No Beliefs That Will Affect Care: None Current Living Situation: Alone Other Information That Helps Us Care for You: No Feels Safe at Home: Yes Safety Concerns: Feels Safe At This Time Assistive Devices: None Assistive Devices Comment: Reading Glasses Physical Exam Physical Exam: Gen.: No acute distress. Alert and oriented. HEENT: Anicteric sclera. Neck: No JVD. No bruits. Normal carotid upstrokes bilaterally. Cardiac: PMI was nondisplaced. No ventricular heave. Regular. Normal S1-S2. No murmurs, rubs, or gallops. Pulmonary: Clear to auscultation bilaterally without wheezes, rales, or rhonchi. Abdomen: Soft, nontender, nondistended, with normoactive bowel sounds. No bruits noted. Extremities: 2+ radial pulses bilaterally. 2+ posterior tibialis pulses bilaterally. No edema or cyanosis. Psychiatric: Affect appears appropriate. Chest: Nontender to palpation. Results & Data ([facility]) Vital Signs (Past 12 Hours) Vital Signs Temp Pulse Resp BP Pulse Ox 05/29/21 11:59 36.7 C 62 18 190/101 H 98 05/29/21 10:16 54 L 174/78 H 05/29/21 07:21 36.6 C 54 L 18 184/94 H 97 05/29/21 03:49 36.6 C 66 16 176/95 H 95 05/29/21 01:02 64 201/101 H Laboratory Results Laboratory Results - last 24 hr 05/28/21 05/28/21 05/28/21 14:43 14:43 14:43 WBC 6.37 RBC 4.61 L Hgb 15.7 Hct 45.4 MCV 98.5 MCH 34.1 H MCHC 34.6 RDW Std Deviation 46.6 H RDW Coeff of Sai 12.9 Plt Count 245 MPV 9.6 Immature Gran % (Auto) 0.2 Neut % (Auto) 76.3 Lymph % (Auto) 14.9 [place] % (Auto) 7.4 Eos % (Auto) 0.9 Baso % (Auto) 0.3 Neut # (Auto) 4.86 Lymph # (Auto) 0.95 L [place] # (Auto) 0.47 Eos # (Auto) 0.06 Baso # (Auto) 0.02 Immature Gran # (Auto) 0.01 PT 10.1 INR 1.0 APTT 24.4 PTT Ratio 0.9 D-Dimer 360 Sodium 135 L Potassium 3.8 Chloride 103 Carbon Dioxide 24 Anion Gap 8 BUN 13 Creatinine 0.88 Est Cr Clr Drug Dosing 124.8 Est GFR ( Amer) 116.9 Est GFR (Non-Af Amer) 100.9 BUN/Creatinine Ratio 14.8 Glucose 82 Calcium 9.3 Magnesium Total Bilirubin 0.6 AST 85 H ALT 89 H Alkaline Phosphatase 59 Troponin I 0.03 Total Protein 7.3 Albumin 4.5 Globulin 2.8 Albumin/Globulin Ratio 1.6 Triglycerides Cholesterol LDL Cholesterol, Calc VLDL Cholesterol, Calc HDL Cholesterol Cholesterol/HDL Ratio Lipase 63 Ethyl Alcohol mg/dL SARS-CoV-2, RNA, NAAT 05/28/21 05/28/21 05/28/21 16:37 18:38 19:37 WBC RBC Hgb Hct MCV MCH MCHC RDW Std Deviation RDW Coeff of Sai Plt Count MPV Immature Gran % (Auto) Neut % (Auto) Lymph % (Auto) [place] % (Auto) Eos % (Auto) Baso % (Auto) Neut # (Auto) Lymph # (Auto) [place] # (Auto) Eos # (Auto) Baso # (Auto) Immature Gran # (Auto) PT INR APTT PTT Ratio D-Dimer Sodium Potassium Chloride Carbon Dioxide Anion Gap BUN Creatinine Est Cr Clr Drug Dosing Est GFR ( Amer) Est GFR (Non-Af Amer) BUN/Creatinine Ratio Glucose Calcium Magnesium 1.8 Total Bilirubin AST ALT Alkaline Phosphatase Troponin I 0.04 0.04 Total Protein Albumin Globulin Albumin/Globulin Ratio Triglycerides Cholesterol LDL Cholesterol, Calc VLDL Cholesterol, Calc HDL Cholesterol Cholesterol/HDL Ratio Lipase Ethyl Alcohol mg/dL SARS-CoV-2, RNA, NAAT NEGATIVE 05/28/21 05/29/21 05/29/21 19:37 05:39 05:39 WBC 5.34 RBC 4.41 L Hgb 14.9 Hct 42.8 MCV 97.1 MCH 33.8 MCHC 34.8 RDW Std Deviation 45.4 RDW Coeff of Sai 12.7 Plt Count 214 MPV 9.3 Immature Gran % (Auto) 0.0 Neut % (Auto) 52.0 Lymph % (Auto) 33.0 [place] % (Auto) 11.8 Eos % (Auto) 2.8 Baso % (Auto) 0.4 Neut # (Auto) 2.78 Lymph # (Auto) 1.76 [place] # (Auto) 0.63 H Eos # (Auto) 0.15 Baso # (Auto) 0.02 Immature Gran # (Auto) 0.00 PT INR APTT 25.1 PTT Ratio 1.0 D-Dimer Sodium Potassium Chloride Carbon Dioxide Anion Gap BUN Creatinine Est Cr Clr Drug Dosing Est GFR ( Amer) Est GFR (Non-Af Amer) BUN/Creatinine Ratio Glucose Calcium Magnesium Total Bilirubin AST ALT Alkaline Phosphatase Troponin I Total Protein Albumin Globulin Albumin/Globulin Ratio Triglycerides Cholesterol LDL Cholesterol, Calc VLDL Cholesterol, Calc HDL Cholesterol Cholesterol/HDL Ratio Lipase Ethyl Alcohol mg/dL < 10.0 SARS-CoV-2, RNA, NAAT 05/29/21 05:39 WBC RBC Hgb Hct MCV MCH MCHC RDW Std Deviation RDW Coeff of Sai Plt Count MPV Immature Gran % (Auto) Neut % (Auto) Lymph % (Auto) [place] % (Auto) Eos % (Auto) Baso % (Auto) Neut # (Auto) Lymph # (Auto) [place] # (Auto) Eos # (Auto) Baso # (Auto) Immature Gran # (Auto) PT INR APTT PTT Ratio D-Dimer Sodium 138 Potassium 3.4 L Chloride 106 Carbon Dioxide 24 Anion Gap 8 BUN 11 Creatinine 0.80 Est Cr Clr Drug Dosing 136.4 Est GFR ( Amer) 121.6 Est GFR (Non-Af Amer) 104.9 BUN/Creatinine Ratio 13.8 Glucose 84 Calcium 8.6 Magnesium Total Bilirubin 0.8 AST 46 H ALT 67 H Alkaline Phosphatase 49 Troponin I 0.04 Total Protein 6.3 Albumin 4.0 Globulin 2.3 L Albumin/Globulin Ratio 1.7 Triglycerides 69 Cholesterol 219 H LDL Cholesterol, Calc 142 VLDL Cholesterol, Calc 14 HDL Cholesterol 63 Cholesterol/HDL Ratio 3.5 Lipase Ethyl Alcohol mg/dL SARS-CoV-2, RNA, NAAT Diagnostic Findings Telemetry personally reviewed: Sinus rhythm. PACs and PVCs noted. No arrhythmia. Chest x-ray 05/28/2021: No acute cardiopulmonary disease. Liver ultrasound 05/29/2021: Mild hepatomegaly with diffuse fatty infiltration of the liver. Echo 05/29/2021: Normal LV size, wall motion, systolic function. EF 55-60%. Moderate LVH. Moderate left atrial dilation. No significant valvular abnormalities. Normal RVSP. ECGs personally reviewed: ECG 05/28/2021 at 2:37 p.m.: Sinus rhythm 66 beats per minute. Fusion complex. Nonspecific T-wave abnormality. ECG 05/29/2021 at 6:46 a.m.: Sinus bradycardia 49 beats per minute. Infe rolateral T-wave inversion. ECG 05/28/2021 at 5:09 p.m.: Sinus bradycardia 59 beats per minute. Inferolateral T-wave inversion. Medications Administered Current Inpatient Medications Amlodipine Besylate (Amlodipine Besylate 5 Mg Tab) 2.5 mg PO [facility] Stop: 06/28/21 20:59 Aspirin (Aspirin 81 Mg Ectab) 81 mg PO [facility] Stop: 06/28/21 08:59 Last Admin: 05/29/21 08:06 Dose: 81 mg Documented by: Atorvastatin Calcium (Atorvastatin 20 Mg Tab) 20 mg PO [facility] Stop: 06/28/21 20:59 Chlordiazepoxide HCl (Chlordiazepoxide Hcl 25 Mg Cap) 25 mg PO BID [facility] Stop: 06/28/21 20:59 Enoxaparin Sodium (Enoxaparin Inj 40 Mg/0.4 Ml Syr) 40 mg SQ [facility] Stop: 06/28/21 08:59 Last Admin: 05/29/21 12:41 Dose: Not Given Documented by: Folic Acid (Folic Acid 1 Mg Tab) [facility] Stop: 06/28/21 08:59 Last Admin: 05/29/21 08:06 Dose: 1 mg Documented by: Lorazepam (Ativan) 1 mg in 2 mls @ 2 mls/min IV UD PRN; Protocol PRN Reason: EtOH Withdrawl AWSS Score 6,7 Stop: 06/27/21 23:36 Lorazepam (Ativan) 2 mg in 4 mls @ 4 mls/min IV UD PRN; Protocol PRN Reason: EtOH Withdrawl AWSS Score 8,9 Stop: 06/27/21 23:36 Lorazepam (Ativan) 3 mg in 6 mls @ 4 mls/min IV ONCE PRN; Protocol PRN Reason: EtOH Withdrawl AWSS Score >=10 Stop: 06/27/21 23:36 Promethazine HCl 12.5 mg/ (Sodium Chloride) 50.5 mls @ 202 mls/hr IV Q6H PRN PRN Reason: Nausea And Vomiting Stop: 06/27/21 23:36 Losartan Potassium (Losartan Potassium 50 Mg Tab) 100 mg PO DAILY [facility] Stop: 06/28/21 08:59 Last Admin: 05/29/21 08:03 Dose: 100 mg Documented by: Miscellaneous (Remove Nicoderm Patch) 1 ea N/A DAILY@[id number] [facility] Stop: 06/29/21 08:58 Multivitamins (Multivitamin Tab) 1 tab PO QAM [facility] Stop: 06/28/21 08:59 Last Admin: 05/29/21 08:05 Dose: 1 tab Documented by: Nicotine (Nicotine 21 Mg/24 Hr Tdsy) 21 mg TD QAM [facility] Stop: 06/28/21 12:59 Nitroglycerin (Nitroglycerin Sl 0.4 Mg/Tab Tab) 0.4 mg SL PRN PRN PRN Reason: cp Stop: 06/27/21 23:36 Oxycodone HCl (Oxycodone Hcl Ir 5 Mg Tab (Immediate Release)) 5 mg PO Q4H PRN PRN Reason: Pain Stop: 06/11/21 23:36 Thiamine HCl (Thiamine Hcl 100 Mg Tab) [facility] Stop: 06/28/21 08:59 Last Admin: 05/29/21 08:05 Dose: 100 mg Documented by: PG Care Time/CCT Total # of Minutes Spent Total Time Spent with Patient: Total time spent is greater than 50% in coordination of care (as documented) at patient's floor/unit and/or counseling patient: Coding Level of Care Code 19094 Inpt Consult Level 4 Diagnoses Chest pain R07.9 Hypertensive urgency I16.0 Hypertension I10 Hyperlipidemia E78.5 Alcohol abuse F10.10 Fatty liver K76.0
[2021-05-29] MEDS: ENOXAPARIN INJ 40 MG/0.4 ML SYR SQ SCH (12:41)
[2021-05-29] MEDS ORDERED: chlordiazePOXIDE HCl 25 MG CAP PO SCH (14:00)
[2021-05-29] MEDS: NICOTINE 21 MG/24 HR TDSY TD SCH (14:30)
--- NOTE | 2021-05-29 15:39 | Electrocardiogram Report ---
Test Reason : Blood Pressure : / mmHG Vent. Rate : 059 BPM Atrial Rate : 059 BPM P-R Int : 188 ms QRS Dur : 102 ms QT Int : 464 ms P-R-T Axes : 050 -02 -41 degrees QTc Int : 459 ms Sinus bradycardia Septal infarct (cited on or before 28-MAY-2021) Abnormal ECG When compared with ECG of 28-MAY-2021 14:37, Fusion complexes are no longer Present T wave inversion more evident in Inferolateral leads Confirmed by Chapin Powell ([id number]) on 05/29/2021 3:38:31 PM Referred By: REFERRED SELF Confirmed By:Chapin Powell
[2021-05-29] MEDS: chlordiazePOXIDE HCl 25 MG CAP PO SCH (20:35)
[2021-05-29] MEDS ORDERED: amLODIPine BESYLATE 5 MG TAB PO SCH (21:00)
[2021-05-29] MEDS ORDERED: ATORVASTATIN 20 MG TAB PO SCH (21:00)
--- NOTE | 2021-05-29 21:13 | Electrocardiogram Report ---
Test Reason : Blood Pressure : / mmHG Vent. Rate : 049 BPM Atrial Rate : 049 BPM P-R Int : 178 ms QRS Dur : 112 ms QT Int : 494 ms P-R-T Axes : 018 -12 -52 degrees QTc Int : 446 ms Sinus bradycardia Abnormal ECG When compared with ECG of 28-MAY-2021 17:09, No significant change was found Confirmed by Chapin Powell ([id number]) on 05/29/2021 9:13:07 PM Referred By: REFERRED SELF Confirmed By:Chapin Powell
[2021-05-29] MEDS ORDERED: GABAPENTIN 600MG Q8H DOSE PO SCH (22:00)
[2021-05-30] MEDS: LOSARTAN POTASSIUM 50 MG TAB PO SCH (08:53)
[2021-05-30] MEDS: THIAMINE HCL 100 MG TAB PO SCH (08:53)
[2021-05-30] MEDS: ENOXAPARIN INJ 40 MG/0.4 ML SYR SQ SCH ×2 (08:53→09:02)
[2021-05-30] MEDS: MULTIVITAMIN TAB PO SCH (08:53)
[2021-05-30] MEDS: FOLIC ACID 1 MG TAB PO SCH (08:54)
[2021-05-30] MEDS: ASPIRIN 81 MG ECTAB PO SCH (08:54)
[2021-05-30] MEDS: chlordiazePOXIDE HCl 25 MG CAP PO SCH (08:58)
[2021-05-30] MEDS ORDERED: amLODIPine BESYLATE 5 MG TAB PO SCH (09:00)
[2021-05-30] MEDS: NICOTINE 21 MG/24 HR TDSY TD SCH (09:02)
[2021-05-30] MEDS ORDERED: REGADENOSON 0.4 MG/5 ML SYR IV ONE (09:44)
--- NOTE | 2021-05-30 09:49 | Cardiology Progress Note ---
Date of Service May 30, 2021 Assessment & Plan (1) Chest pain: (2) Hypertensive urgency: (3) Hypertension: (4) Hyperlipidemia: (5) Alcohol abuse: (6) Fatty liver: Plan: ASSESSMENT/PLAN: 1. Chest pain: Occurred after exertion. Troponin negative. Given risk factors, recommend ischemic evaluation. Myocardial perfusion study pending today. Chest pain could be due to underlying ischemic heart disease, severe hypertension, or other etiology. 2. Hypertensive urgency: Blood pressure improved but remains mildly elevated. Amlodipine is new this hospitalization has been titrated to 5 mg daily. If necessary, it can be further titrated to 10 mg daily. Continue losartan 100 mg daily, increased from home dose of 50 mg. Currently asymptomatic. 3. Hypertension: Plan as above. 4. Dyslipidemia: Recommend increasing atorvastatin to 40 mg daily as mentioned by hospitalist service. 5. Alcohol abuse: Alcohol cessation recommended and discussed. 6. Fatty liver: As per primary service. Recommended that he avoid alcohol consumption. 7. Disposition: If myocardial perfusion study is unremarkable, can be discharged home from a cardiology standpoint based on today's visit. Would recommend close follow-up in the office with PCP, or cardiology if he wishes, for blood pressure management. Addendum: Myocardial perfusion study was negative for significant ischemia or infarct. Can be discharged home from a cardiology standpoint. Continue t itrated blood pressure regimen. Follow-up soon with PCP to further adjust antihypertensive regimen as necessary. Plan of care communicated with Dr. Ramirez, of the primary hospitalist service. Admission and Anticipated Discharge Date Admission Date: May 29, 2021 Subjective Patient seen earlier this morning in his hospital room. He has ambulated in the hallways without chest discomfort. He has not had any recurrent chest discomfort. He denies shortness of breath, syncope, near-syncope, palpitations, edema, or bleeding. He asked if he could go home today. He was alone in his hospital room. Review of systems: As above. Physical Exam Physical Exam: Gen.: No acute distress. Alert and oriented. HEENT: Anicteric sclera. Neck: No JVD. Cardiac: PMI was nondisplaced. No ventricular heave. Regular and bradycardic in the 50s. Normal S1-S2. No murmurs, rubs, or gallops. Pulmonary: Clear to auscultation bilaterally without wheezes, rales, or rhonchi. Abdomen: Soft, nontender, nondistended, with normoactive bowel sounds. No bruits noted. Extremities: 2+ radial pulses bilaterally. 2+ posterior tibialis pulses bilaterally. No edema or cyanosis. Psychiatric: Affect appears appropriate. Results & Data ([facility]) Vital Signs (Past 12 Hours) Vital Signs Temp Pulse Pulse Resp BP Pulse Ox 05/30/21 07:47 36.7 C 58 L 16 155/85 H 95 05/30/21 07:41 62 05/30/21 04:23 36.7 C 68 16 150/86 H 96 05/30/21 00:00 90 05/29/21 23:53 36.8 C 89 16 142/89 H 96 Laboratory Results At Laboratory Results - last 48 hr 05/28/21 05/28/21 05/28/21 14:43 14:43 14:43 WBC 6.37 RBC 4.61 L Hgb 15.7 Hct 45.4 MCV 98.5 MCH 34.1 H MCHC 34.6 RDW Std Deviation 46.6 H RDW Coeff of Sai 12.9 Plt Count 245 MPV 9.6 Immature Gran % (Auto) 0.2 Neut % (Auto) 76.3 Lymph % (Auto) 14.9 Thayer % (Auto) 7.4 Eos % (Auto) 0.9 Baso % (Auto) 0.3 Neut # (Auto) 4.86 Lymph # (Auto) 0.95 L Thayer # (Auto) 0.47 Eos # (Auto) 0.06 Baso # (Auto) 0.02 Immature Gran # (Auto) 0.01 PT 10.1 INR 1.0 APTT 24.4 PTT Ratio 0.9 D-Dimer 360 Sodium 135 L Potassium 3.8 Chloride 103 Carbon Dioxide 24 Anion Gap 8 BUN 13 Creatinine 0.88 Est Cr Clr Drug Dosing 124.8 Est GFR ( Amer) 116.9 Est GFR (Non-Af Amer) 100.9 BUN/Creatinine Ratio 14.8 Glucose 82 Calcium 9.3 Magnesium Total Bilirubin 0.6 AST 85 H ALT 89 H Alkaline Phosphatase 59 Troponin I 0.03 Total Protein 7.3 Albumin 4.5 Globulin 2.8 Albumin/Globulin Ratio 1.6 Triglycerides Cholesterol LDL Cholesterol, Calc VLDL Cholesterol, Calc HDL Cholesterol Cholesterol/HDL Ratio Lipase 63 Ethyl Alcohol mg/dL SARS-CoV-2, RNA, NAAT 05/28/21 05/28/21 05/28/21 16:37 18:38 19:37 WBC RBC Hgb Hct MCV MCH MCHC RDW Std Deviation RDW Coeff of Sai Plt Count MPV Immature Gran % (Auto) Neut % (Auto) Lymph % (Auto) Thayer % (Auto) Eos % (Auto) Baso % (Auto) Neut # (Auto) Lymph # (Auto) Thayer # (Auto) Eos # (Auto) Baso # (Auto) Immature Gran # (Auto) PT INR APTT PTT Ratio D-Dimer Sodium Potassium Chloride Carbon Dioxide Anion Gap BUN Creatinine Est Cr Clr Drug Dosing Est GFR ( Amer) Est GFR (Non-Af Amer) BUN/Creatinine Ratio Glucose Calcium Magnesium 1.8 Total Bilirubin AST ALT Alkaline Phosphatase Troponin I 0.04 0.04 Total Protein Albumin Globulin Albumin/Globulin Ratio Triglycerides Cholesterol LDL Cholesterol, Calc VLDL Cholesterol, Calc HDL Cholesterol Cholesterol/HDL Ratio Lipase Ethyl Alcohol mg/dL SARS-CoV-2, RNA, NAAT NEGATIVE 05/28/21 05/29/21 05/29/21 19:37 05:39 05:39 WBC 5.34 RBC 4.41 L Hgb 14.9 Hct 42.8 MCV 97.1 MCH 33.8 MCHC 34.8 RDW Std Deviation 45.4 RDW Coeff of Sai 12.7 Plt Count 214 MPV 9.3 Immature Gran % (Auto) 0.0 Neut % (Auto) 52.0 Lymph % (Auto) 33.0 Thayer % (Auto) 11.8 Eos % (Auto) 2.8 Baso % (Auto) 0.4 Neut # (Auto) 2.78 Lymph # (Auto) 1.76 Thayer # (Auto) 0.63 H Eos # (Auto) 0.15 Baso # (Auto) 0.02 Immature Gran # (Auto) 0.00 PT INR APTT 25.1 PTT Ratio 1.0 D-Dimer Sodium Potassium Chloride Carbon Dioxide Anion Gap BUN Creatinine Est Cr Clr Drug Dosing Est GFR ( Amer) Est GFR (Non-Af Amer) BUN/Creatinine Ratio Glucose Calcium Magnesium Total Bilirubin AST ALT Alkaline Phosphatase Troponin I Total Protein Albumin Globulin Albumin/Globulin Ratio Triglycerides Cholesterol LDL Cholesterol, Calc VLDL Cholesterol, Calc HDL Cholesterol Cholesterol/HDL Ratio Lipase Ethyl Alcohol mg/dL < 10.0 SARS-CoV-2, RNA, NAAT 05/29/21 05:39 WBC RBC Hgb Hct MCV MCH MCHC RDW Std Deviation RDW Coeff of Sai Plt Count MPV Immature Gran % (Auto) Neut % (Auto) Lymph % (Auto) Thayer % (Auto) Eos % (Auto) Baso % (Auto) Neut # (Auto) Lymph # (Auto) Thayer # (Auto) Eos # (Auto) Baso # (Auto) Immature Gran # (Auto) PT INR APTT PTT Ratio D-Dimer Sodium 138 Potassium 3.4 L Chloride 106 Carbon Dioxide 24 Anion Gap 8 BUN 11 Creatinine 0.80 Est Cr Clr Drug Dosing 136.4 Est GFR ( Amer) 121.6 Est GFR (Non-Af Amer) 104.9 BUN/Creatinine Ratio 13.8 Glucose 84 Calcium 8.6 Magnesium Total Bilirubin 0.8 AST 46 H ALT 67 H Alkaline Phosphatase 49 Troponin I 0.04 Total Protein 6.3 Albumin 4.0 Globulin 2.3 L Albumin/Globulin Ratio 1.7 Triglycerides 69 Cholesterol 219 H LDL Cholesterol, Calc 142 VLDL Cholesterol, Calc 14 HDL Cholesterol 63 Cholesterol/HDL Ratio 3.5 Lipase Ethyl Alcohol mg/dL SARS-CoV-2, RNA, NAAT Diagnostic Findings Telemetry personally reviewed: Sinus rhythm. No arrhythmia. Medications Administered Current Inpatient Medications Amlodipine Besylate (Amlodipine Besylate 5 Mg Tab) 5 mg PO QAM [facility] Stop: 06/29/21 08:59 Last Admin: 05/30/21 08:54 Dose: 5 mg Documented by: Aspirin (Aspirin 81 Mg Ectab) 81 mg PO QAM [facility] Stop: 06/28/21 08:59 Last Admin: 05/30/21 08:54 Dose: 81 mg Documented by: Atorvastatin Calcium (Atorvastatin 20 Mg Tab) 20 mg PO HS [facility] Stop: 06/28/21 20:59 Last Admin: 05/29/21 20:35 Dose: 20 mg Documented by: Chlordiazepoxide HCl (Chlordiazepoxide Hcl 25 Mg Cap) 25 mg PO BID [facility] Stop: 06/28/21 20:59 Last Admin: 05/30/21 08:58 Dose: 25 mg Documented by: Enoxaparin Sodium (Enoxaparin Inj 40 Mg/0.4 Ml Syr) 40 mg SQ QAM [facility] Stop: 06/28/21 08:59 Last Admin: 05/30/21 09:02 Dose: Not Given Documented by: Folic Acid (Folic Acid 1 Mg Tab) 1 mg PO QAM [facility] Stop: 06/28/21 08:59 Last Admin: 05/30/21 08:54 Dose: 1 mg Documented by: Lorazepam (Ativan) 1 mg in 2 mls @ 2 mls/min IV UD PRN; Protocol PRN Reason: EtOH Withdrawl AWSS Score 6,7 Stop: 06/27/21 23:36 Lorazepam (Ativan) 2 mg in 4 mls @ 4 mls/min IV UD PRN; Protocol PRN Reason: EtOH Withdrawl AWSS Score 8,9 Stop: 06/27/21 23:36 Lorazepam (Ativan) 3 mg in 6 mls @ 4 mls/min IV ONCE PRN; Protocol PRN Reason: EtOH Withdrawl AWSS Score >=10 Stop: 06/27/21 23:36 Promethazine HCl 12.5 mg/ (Sodium Chloride) 50.5 mls @ 202 mls/hr IV Q6H PRN PRN Reason: Nausea And Vomiting Stop: 06/27/21 23:36 Losartan Potassium (Losartan Potassium 50 Mg Tab) 100 mg PO DAILY [facility] Stop: 06/28/21 08:59 Last Admin: 05/30/21 08:53 Dose: 100 mg Documented by: Miscellaneous (Remove Nicoderm Patch) 1 ea N/A DAILY@0859 [facility] Stop: 06/29/21 08:58 Last Admin: 05/30/21 08:55 Dose: Not Given Documented by: Multivitamins (Multivitamin Tab) 1 tab PO QAM [facility] Stop: 06/28/21 08:59 Last Admin: 05/30/21 08:53 Dose: 1 tab Documented by: Nicotine (Nicotine 21 Mg/24 Hr Tdsy) 21 mg TD QAM [facility] Stop: 06/28/21 12:59 Last Admin: 05/30/21 09:02 Dose: Not Given Documented by: Nitroglycerin (Nitroglycerin Sl 0.4 Mg/Tab Tab) 0.4 mg SL PRN PRN PRN Reason: cp Stop: 06/27/21 23:36 Oxycodone HCl (Oxycodone Hcl Ir 5 Mg Tab (Immediate Release)) 5 mg PO Q4H PRN PRN Reason: Pain Stop: 06/11/21 23:36 Thiamine HCl (Thiamine Hcl 100 Mg Tab) 100 mg PO QAM [facility] Stop: 06/28/21 08:59 Last Admin: 05/30/21 08:53 Dose: 100 mg Documented by: PG Care Time/CCT Total # of Minutes Spent Total Time Spent with Patient: Total time spent is greater than 50% in coordination of care (as documented) at patient's floor/unit and/or counseling patient: Coding Level of Care Code 81248 Subseq Hosp Care Lvl 3 Diagnoses Chest pain R07.9 Hypertensive urgency I16.0 Hypertension I10 Hyperlipidemia E78.5 Alcohol abuse F10.10 Fatty liver K76.0
--- NOTE | 2021-05-30 14:09 | Hospitalist Progress Note ---
Date of Service May 30, 2021 Assessment & Plan (1) Chest pain: Plan: Chest pain with minimal troponin elevation secondary to uncontrolled hypertension Rule out ACS given patient risk factors Hyperlipidemia on statin Rx Abnormal LFTs, possibly from alcohol abuse Now inpatient Titrate home losartan Amlodipine 5 mg currently Follow troponin TTE, Cardiology on case (Patient requesting for Dr. Bishop.) Aspirin for CAD prevention until ACS ruled out Outpatient sleep study Follow LFTs, liver ultrasound if with progression [place] S, DT precautions Update lipid profile, continue statin DVT prophylaxis per Lovenox subcu Labs reviewed ROS-No Headache, No Visual Changes, No Nausea, No Vomiting, No Fever, No Chills, No Neck Pain or Stiffness, No Chest Pain, No Palpitations, No SOB, No KRAFT, No Cough, No Sputum, No Wheezing, No Abdominal Pain, No Diarrhea, No Hematemesis, No Hemoptysis, No Unexpected Weight Loss, No Flank pain, No Melena, No Hematochezia, No Frequency, No Urgency, No Burning, No Hematuria, No Rashes, No Diaphoresis. Appetite is Normal Physical Exam Gen-AAO x 3, NAD, Afebrile Head-NCAT, EOMI, PERRLA, Anicteric Sclera, No Posterior Pharyngeal Erythema Neck-Supple, No JVD, No Thyromegaly, No Masses, No LAD, No Bruits Lungs-Clear to Auscultation Bilaterally, No Rales, No Rhonchi, No Wheezing, No Crepitus Chest-No S4, +S1, +S2, No S3, No Murmurs, No Rubs, No Gallops, No Ectopy Abdomen-Soft, Bowel Sounds Present, Non Tender, Non Distended, No Hepatomegaly, No Splenomegaly, No Palpable Masses, No Rebound, No Rigidity, No Guarding Musculoskeletal-Full Range of Motion Bilaterally, No CVAT Extremities-No Cyanosis, No Clubbing, No Edema Nuero-Cranial Nerves II-XII grossly intact, Motor WNL, DTRs WNL, Strength WNL, Non Focal Psych-Normal Mood Admission and Anticipated Discharge Date Admission Date: May 29, 2021 Results & Data Results & Data ([facility]) Vital Signs (Past 12 Hours) Vital Signs Temp Pulse Pulse Resp BP Pulse Ox 05/30/21 07:47 36.7 C 58 L 16 155/85 H 95 05/30/21 07:41 62 05/30/21 04:23 36.7 C 68 16 150/86 H 96
--- NOTE | 2021-05-30 14:49 | Myocardial Perfusion Study ---
Date of Service May 30, 2021 Myocardial Perfusion Study Blk Myocardial Perfusion Study Report [place] Act 112: Negative Procedure: 1. Myocardial perfusion study performed in multiple views/images 2. Lexiscan pharmacologic stress ECG Indications: 1. Chest pain Ordering physician: Vinay Powell Procedural details: For the stress portion of the study, Lexiscan 0.4 mg was intravenously administered followed by a saline flush. This was followed by 33 mCi of technetium 99m Cardiolite, injected at 1:08 p.m. on 05/30/2021. 30 minutes following the injection, imaging of the heart was performed in multiple projections. For the rest portion of the study, 10.5 mCi technetium 99m Cardiolite was injected intravenously at 11:33 a.m. on 05/30/2021. 1 hour following the injection, imaging of the heart was performed in the same projections. Lexiscan stress ECG: Continuous ECG monitoring was performed with supervision and interpretation. Resting ECG demonstrated: Sinus rhythm 64 beats per minute. Inferolateral T- wave inversion. Maximum heart rate: 116 bpm Maximal, age-predicted heart rate: 67 % Resting blood pressure: 167/84 mmHg Maximum blood pressure: 167/[address] changes: None Arrhythmia: None Symptoms: [place] warm Findings: Rotating raw imaging demonstrated no significant lung uptake. There is no significant motion artifact. Heart size appeared normal. Myocardial perfusion demonstrated no significant reversible or fixed defect to suggest ischemia or infarct. Ejection fraction: 50% Wall motion: Normal No significant transient ischemic dilation. Impression: 1. Negative myocardial perfusion study for significant ischemia or infarct. 2. Low-normal LV systolic function. EF 50%. 3. Normal wall motion. 4. No chest pain reported. 5. Nondiagnostic Lexiscan ECG. [facility] [place] perfusion [place] Procedure Code Procedure 1: Myocardial Perfusion Codes: 02513 Cardiovascular Stress Test, multiple Procedure 2: Myocardial Perfusion Codes: 86415 Cardiovascular Stress Test, supervision only Procedure 3: Myocardial Perfusion Codes: 32321 Cardiovascular Stress Test, interpretation and report
--- NOTE | 2021-05-30 15:47 | Discharge Summary ---
Date of Service May 30, 2021 Admission HPI Per Admitting Provider History obtained from patient and records. Medical history significant for hypertension, hyperlipidemia, alcohol abuse. Patient experience sharp left-sided chest pain with diaphoreses after shoveling snow at home today. No radiation. Some shortness of breath. No headache symptoms. No cough symptoms. No prior episodes. Patient given aspirin at home by family. Chest pain relieved by aspirin. No prior episodes. Patient does not check blood pressure at home. Compliant with home medications. Patient admits to drinking more alcohol than he should. No prior history of alcohol withdrawal. Admits to snoring symptoms. No prior sleep studies. 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 Exam Per Admitting Provider GENERAL: Comfortable, pleasant, slightly anxious, no respiratory distress SKIN: Normal color, warm HEENT: [place] palpebral conjunctivae, no ptosis, dry buccal mucosa NECK : Supple, no tenderness CHEST : CTA, no tenderness HEART : RRR, no obvious murmurs ABDOMEN: Some distention, nontender EXTREMITIES : No LE swelling/tenderness, no other conspicuous deformities noted NEUROLOGIC : Coherent, no facial asymmetry, no other gross focality Principal Diagnosis Atypical CP Uncontrolled Hypertension Hyperlipidemia Elevated Liver Enzymes Discharge Exam See below Discharge Data Allergies Allergy/AdvReac Type Severity Reaction Status Date / Time lisinopril AdvReac Unknown Cough Verified 05/28/21 15:26 Consultations 05/28/21 18:56 ED Decision to Admit Stat 05/28/21 23:37 Consult Cardiology Routine Ordered Studies 05/29/21 08:24 US liver Routine Hospital Course (1) Chest pain: Chest pain with minimal troponin elevation secondary to Uncontrolled Hypertension Hyperlipidemia Elevated Liver Enzymes hypertension and statin?? Ruled out ACS Echo and stress neg, Cozaar increased, Atorvastatin increased, Norvasc added Hyperlipidemia increase statin, Add ASA Abnormal LFTs, possibly from alcohol abuse, Statin DC home and f/u c PCP, Thimaine, Folate, MVIT, Librium ROS-No Headache, No Visual Changes, No Nausea, No Vomiting, No Fever, No Chills, No Neck Pain or Stiffness, No Chest Pain, No Palpitations, No SOB, No KRAFT, No Cough, No Sputum, No Wheezing, No Abdominal Pain, No Diarrhea, No Hematemesis, No Hemoptysis, No Unexpected Weight Loss, No Flank pain, No Melena, No Hematochezia, No Frequency, No Urgency, No Burning, No Hematuria, No Rashes, No Diaphoresis. Appetite is Normal Physical Exam Gen-AAO x 3, NAD, Afebrile Head-NCAT, EOMI, PERRLA, Anicteric Sclera, No Posterior Pharyngeal Erythema Neck-Supple, No JVD, No Thyromegaly, No Masses, No LAD, No Bruits Lungs-Clear to Auscultation Bilaterally, No Rales, No Rhonchi, No Wheezing, No Crepitus Chest-No S4, +S1, +S2, No S3, No Murmurs, No Rubs, No Gallops, No Ectopy Abdomen-Soft, Bowel Sounds Present, Non Tender, Non Distended, No Hepatomegaly, No Splenomegaly, No Palpable Masses, No Rebound, No Rigidity, No Guarding Musculoskeletal-Full Range of Motion Bilaterally, No CVAT Extremities-No Cyanosis, No Clubbing, No Edema Nuero-Cranial Nerves II-XII grossly intact, Motor WNL, DTRs WNL, Strength WNL, Non Focal Psych-Normal Mood DC Total Time Total Time Spent Total Time Spent (In Minutes): 45 mins Total Time Includes: Examination of the Patient, Discharge Planning, Medication Reconciliation and Communication With Other Providers Discharge Plan Discharge Items Patient Disposition: Home - Self-Care Reason For Visit: CP, UNCONTROLLED HTN Discharge Diagnosis: Atypical CP Uncontrolled Hypertension Hyperlipidemia Elevated Liver Enzymes Condition on Discharge: Good Health Concerns: Get off Alcohol Activity: Resume your previous activity Lifting: Gradually increase as tolerated Bathing: No limitations Sexual Activity: When tolerated Exercise/Sports: Gradually increase as tolerated Driving/Machine Use: No limitations Weightbearing: Full weightbearing Non-emergency contact: Primary Care Provider Call non-emergency contact if: you have any medication questions Follow-up/Referrals: Christopher Mejia MD [Primary Care Provider] - (Date & Time 06/07/2021 11:20 AM Provider Christopher Mejia MD Department [facility] ) Diet: Heart Healthy Addtl Attending Provider Instructions: None Pending Studies at Discharge: No Stand-Alone Forms: My [place], Smoking Cessation Medications and DC Order Prescriptions: New losartan 50 mg Tablet 100 mg PO DAILY Qty: 30 RF: 0 amlodipine [Norvasc] 5 mg Tablet 5 mg PO QAM Qty: 30 RF: 0 nitroglycerin [Nitrostat] 0.4 mg Tablet, Sublingual 0.4 mg sublingual PRN PRN (Reason: chest pain) Qty: 30 RF: 0 thiamine HCl (vitamin B1) 100 mg Tablet 100 mg PO QAM Qty: 30 RF: 0 aspirin 81 mg Tablet,Delayed Release (Dr/Ec) 81 mg PO QAM Qty: 30 RF: 0 potassium chloride 20 mEq Tablet,Er Particles/Crystals 20 meq PO BID Qty: 20 RF: 0 chlordiazepoxide HCl 25 mg Capsule 25 mg PO BID Qty: 10 RF: 0 folic acid 1 mg Tablet 1 mg PO QAM Qty: 30 RF: 0 multivitamin with folic acid [Daily-Kelli (with folic acid)] 400 mcg Tablet 1 tab PO QAM Qty: 100 RF: 0 atorvastatin 40 mg tablet 40 mg PO DAILY Qty: 30 RF: 0 Discontinued losartan 50 mg tablet 50 mg PO DAILY RF: 0 atorvastatin 20 mg tablet 20 mg PO HS RF: 0 Discharge Orders: Discharge Order (Routine); Ordered 05/30/21 Ordered By: Yemi Ramirez Admission Data Admit Date/Time: 05/29/21 12:15 Attending Provider: Yemi Ramirez Admit Provider: Alec Jade Primary Care Provider: Christopher Mejia Other Providers: Alec Jade ; Everett Bishop
[2021-05-30] MEDS ORDERED: POTASSIUM CHLORIDE CRTAB 20 MEQ TABCR PO SCH (21:00)
[2021-05-31] MEDS ORDERED: GABAPENTIN 600MG Q12H DOSE PO SCH
[2021-06-01] MEDS ORDERED: GABAPENTIN 600MG X1 DOSE PO SCH (12:00)
== END 2021-05-30 16:18 | disposition home or self-care (01) | DRG 305 ==
LOC: 2S 14:09 → ED 14:09 → SUATTDRO 21:13 → 2S 23:17 → SUATTDRO 05-29 12:15 → 2S 05-29 14:34